=== PATIENT | male | born 1995 | race Two or more races ===

== ENCOUNTER 2018-06-08 10:57 | Emergency (ER) | payer OTHER ==
[~2018-06-08] VITALS: Ht 172.7 cm; Wt 92.1 kg
[2018-06-08 11:02] VITALS: Ht 172.7 cm; Wt 92.1 kg
[2018-06-08 13:20] VITALS: BP 144/69
== END 2018-06-08 13:20 | disposition home or self-care (01) ==
LOC: ED 10:57
DX: M54.32 Sciatica, left side (principal)

== ENCOUNTER 2019-06-16 12:33 | Emergency (ER) | payer MEDICAID ==
[~2019-06-16] VITALS: Ht 172.7 cm; Wt 99.8 kg
[2019-06-16 12:36] VITALS: Ht 172.7 cm; Wt 99.8 kg
[2019-06-16 15:16] VITALS: BP 125/77
== END 2019-06-16 15:27 | disposition home or self-care (01) ==
LOC: ED 12:33
DX: S61.213A Laceration without foreign body of left middle finger without damage to nail, initial encounter (principal); W26.0XXA Contact with knife, initial encounter; Y93.89 Activity, other specified; Y92.89 Other specified places as the place of occurrence of the external cause; Y99.8 Other external cause status
CPT/HCPCS: 90715